=== PATIENT | male | born 1995 | race Caucasian/White ===

== ENCOUNTER 2024-08-05 19:40 | Emergency (ER) | payer MEDICAID ==
[~2024-08-05] VITALS: Ht 165.1 cm; Wt 69.9 kg
[2024-08-05] MEDS ORDERED: KETOROLAC TROMETHAMINE 15 MG INJ ONE (20:18)
[2024-08-05] MEDS ORDERED: ONDANSETRON 4 MG/2 ML VIAL ONE (20:18)
[2024-08-05] MEDS ORDERED: HYDROMORPHONE 1 MG/1 ML DISP.SYRIN ONE (20:19)
[2024-08-05 20:21] LABS: *BILIRUBIN,URIN NEGATIVE (NEGATIVE); *CLARITY,URINE CLEAR (CLEAR); *COLOR,URINE YELLOW (YELLOW); *KETONES,URINE NEGATIVE (NEGATIVE); *PROTEIN,URINE NEGATIVE (NEGATIVE); *UROBILINOGEN,URINE 0.2 E.U./dl (NORMAL); LEUKOCYTE ESTERASE ,URINE NEGATIVE (NEGATIVE); NITRITE, URINE NEGATIVE (NEGATIVE); PH,URINE 5.5 (5.0-8.0); UGLUCOSE NEGATIVE (NEGATIVE)
[2024-08-05 20:23] LABS: BASOPHILS # (AUTO) 0.1 K/UL (0.0-0.2); BASOPHILS % (AUTO) 1.3 % (0.0-2.0); DIFFERENTIAL COMMENT 1; EOSINOPHILS # (AUTO) 0.2 K/uL (0.0-0.7); EOSINOPHILS % (AUTO) 2.4 % (0.0-7.0); HEMATOCRIT 47.4 % (36.7-47.1); HEMOGLOBIN 16.5 g/dL (12.5-16.3); LYMPHOCYTES # (AUTO) 3.2 K/uL (0.8-4.8); LYMPHOCYTES % (AUTO) 41.6 % (20.5-51.5); MEAN CORPUSCULAR HEMOGLOBIN 30.9 uug (23.8-33.4); MEAN CORPUSCULAR HGB CONC 35 g/dL (32.5-36.3); MEAN CORPUSCULAR VOLUME 88.5 fL (73.0-96.2); MONOCYTES # (AUTO) 0.8 K/uL (0.1-1.30); MONOCYTES % (AUTO) 9.8 % (0.0-11.0); NEUTROPHILS # (AUTO) 3.5 K/uL (1.8-8.9); NEUTROPHILS % (AUTO) 44.9 % (38.5-71.5); PLATELET COUNT (AUTO) 307 K/uL (152-348); RED BLOOD CELL COUNT(AUTO) 5.36 MIL/uL (4.06-5.63); WHITE BLOOD COUNT (AUTO) 7.8 K/uL (3.6-10.2)
[2024-08-05 20:24] LABS: *BLOOD, URINE TRACE (NEGATIVE)
[2024-08-05 20:28] LABS: CALCIUM 9.1 mg/dL (8.5-10.1); POTASSIUM 4.3 mmol/L (3.5-5.1)
[2024-08-05 20:32] LABS: BACTERIA,URINE NONE SEEN /HPF (NONE SEEN); RBC,URINE 0-3 /HPF (0-3); SQUAMOUS EPITHELIAL CELL,UR NONE SEEN /HPF (NONE SEEN); WBC,URINE 0-3 /HPF (0-3)
[2024-08-05] MEDS: HYDROMORPHONE 1 MG/1 ML DISP.SYRIN IV ONE (20:32)
[2024-08-05] MEDS: ONDANSETRON 4 MG/2 ML VIAL IV ONE (20:32)
[2024-08-05] MEDS: KETOROLAC TROMETHAMINE 15 MG INJ IVP ONE (20:32)
[2024-08-05 20:34] LABS: ALBUMIN 4.2 g/dL (3.4-5.0); BILIRUBIN,DIRECT 0.1 mg/dL (0.0-0.2); BILIRUBIN,TOTAL 0.3 mg/dL (0.2-1.0); TOTAL PROTEIN, SERUM 8.2 g/dL (6.4-8.2)
[2024-08-05 23:07] VITALS: BP 128/82; O2SAT 99
== END 2024-08-05 22:35 | disposition home or self-care (01) ==
LOC: ER 19:45
DX: R10.32 Left lower quadrant pain (principal); M79.642 Pain in left hand
CPT/HCPCS: 99285; 74176; 96374; 96375; 80076; 80048; 81001; 83690; 85025; 36415; J1885; J2405; J1171; A4606; A4663

== ENCOUNTER 2024-08-11 16:43 | Emergency (ER) | payer MEDICAID ==
[~2024-08-11] VITALS: Ht 165.1 cm; Wt 63.5 kg
[2024-08-11] MEDS ORDERED: FAMOTIDINE 20 MG TABLET ONE (17:16)
[2024-08-11] MEDS: FAMOTIDINE 20 MG TABLET PO ONE (17:19)
[2024-08-11] MEDS ORDERED: CALC-818 PO (17:23)
[2024-08-11] MEDS ORDERED: PANT40TA49 PO (17:23)
[2024-08-11 17:30] VITALS: BP 131/80; O2SAT 100
== END 2024-08-11 17:31 | disposition home or self-care (01) ==
LOC: ER 16:43
DX: K29.00 Acute gastritis without bleeding (principal)
CPT/HCPCS: A4606; A4663